=== PATIENT | male | born 1995 | race Two or more races ===

== ENCOUNTER 2025-04-10 19:41 | Emergency (ER) | payer SELFPAY ==
[~2025-04-10] VITALS: Ht 175.3 cm; Wt 138.9 kg
[2025-04-10 21:52] VITALS: BP 133/86; PULSE 91; RESP 19; TEMP 98.3; O2SAT 98
[2025-04-10] MEDS: cefTRIAXone SOD 1,000 MG VL IM ONE (22:18)
[2025-04-10] MEDS: TETANUS-DIPTH-ACEL PERTUSSIS 0.5ML SYR Tdap IM ONE (22:20)
[2025-04-10] MEDS ORDERED: ACET500T58 PO (22:28)
[2025-04-10] MEDS ORDERED: AMOX875T4 PO (22:28)
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
== END 2025-04-10 22:43 | disposition home or self-care (01) ==
LOC: ER 19:41
DX: S01.312A Laceration without foreign body of left ear, initial encounter (principal); Y08.89XA Assault by other specified means, initial encounter; Y93.89 Activity, other specified; Y92.89 Other specified places as the place of occurrence of the external cause; Y99.8 Other external cause status
CPT/HCPCS: 12011; 90471; 90715; 96372; 99284; A4649; J0696